=== PATIENT | female | born 1945 | race Caucasian/White ===

== ENCOUNTER 2024-03-18 21:45 | Inpatient (IN) | payer BC, MEDICARE ==
--- NOTE | 2024-03-18 22:19 | ED ---
General Adult HPI - General Chief complaint: Shortness of Breath Stated complaint: JACK Time Seen by Provider: 03/18/24 21:47 Source: patient, EMS, RN notes reviewed, old records reviewed Mode of arrival: EMS Limitations: no limitations - History of Present Illness Initial comments: 78 yo female presenting with cough and dyspnea. [facility]. She is from out of town and states she has been out of her inhaler. She has recent diagnosis of pneumonia and reports that she had initially improved but then redeveloped cough and chills. She is febrile upon arrival. She was given albuterol, Atrovent and prednisone by paramedics. She states cough is productive. No central chest pain. No lower extremity pain or swelling. - Related Data Home Medications Medication Instructions Recorded Confirmed Acetaminophen [Tylenol] 650 mg PO Q6H PRN 05/05/22 05/05/22 Albuterol Inhaler [Ventolin Hfa 2 puff INHALATION RT-Q6H PRN 05/05/22 05/05/22 Inhaler] Cetirizine HCl [Zyrtec] 10 mg PO DAILY 05/05/22 05/05/22 Cider Vinegar [Apple Cider Vinegar] 600 mg PO DAILY 05/05/22 05/05/22 Citalopram Hydrobromide [CeleXA] 40 mg PO DAILY 05/05/22 05/05/22 Flaxseed Oil 3000 Mg 6,000 mg PO DAILY 05/05/22 05/05/22 Fluticasone Propion/Salmeterol 1 puff INHALATION RT-BID 05/05/22 05/05/22 [Fluticasone-Salmeterol 500-50] Hyoscyamine Sulfate [Levsin] 0.25 mg PO TID PRN 05/05/22 05/05/22 Ketoconazole [Ketoconazole 2% 1 applic TOPICAL Q72H PRN 05/05/22 05/05/22 Shampoo] Levalbuterol Nebulized [Xopenex 1.25 mg INHALATION RT-TID PRN 05/05/22 05/05/22 Nebulized] Levothyroxine Sodium [Synthroid] 125 mcg PO DAILY 05/05/22 05/05/22 Magnesium Oxide 200 mg PO DAILY 05/05/22 05/05/22 Multivit-Min/Iron/Folic/Lutein 1 tab PO DAILY 05/05/22 05/05/22 [Centrum Silver Women Tablet] Omeprazole Magnesium [PriLOSEC OTC] 20 mg PO DAILY 05/05/22 05/05/22 Pseudoephedrine [Sudafed] 30 mg PO Q4H PRN 05/05/22 05/05/22 Spironolactone 50 mg PO BID 05/05/22 05/05/22 buPROPion [Wellbutrin] 100 mg PO BID 05/05/22 05/05/22 hydroCHLOROthiazide [Hydrodiuril] 12.5 mg PO DAILY 05/05/22 05/05/22 lisinopriL [Zestril] 20 mg PO BID 05/05/22 05/05/22 polyethylene glycoL 3350 [Miralax] 17 gm PO DAILY PRN 05/05/22 05/05/22 Allergies Allergy/AdvReac Type Severity Reaction Status Date / Time No Known Allergies Allergy Verified 05/05/22 22:46 Review of Systems ROS Statement: Those systems with pertinent positive or pertinent negative responses have been documented in the HPI. ROS Other: All systems not noted in ROS Statement are negative. Past Medical History Past Medical History: Dementia, Hypertension, Pneumonia History of Any Multi-Drug Resistant Organisms: None Reported Past Surgical History: No Surgical Hx Reported Past Psychological History: No Psychological Hx Reported Smoking Status: Never smoker Past Alcohol Use History: None Reported, Rare Past Drug Use History: None Reported General Exam General appearance: alert, in no apparent distress Head exam: Present: atraumatic, normocephalic Eye exam: Present: normal appearance, PERRL ENT exam: Present: normal exam Neck exam: Present: normal inspection. Absent: tenderness Respiratory exam: Present: rhonchi, decreased breath sounds. Absent: respiratory distress Cardiovascular Exam: Present: normal rhythm, tachycardia GI/Abdominal exam: Present: soft. Absent: distended, tenderness, guarding Extremities exam: Present: normal inspection, normal capillary refill. Absent: pedal edema Neurological exam: Present: alert, oriented X3, CN II-XII intact. Absent: motor sensory deficit Psychiatric exam: Present: normal affect, normal mood Skin exam: Present: warm, dry, intact. Absent: cyanosis, diaphoretic Course Vital Signs 07/02/0403/18/24 03/18/24 21:53 22:00 22:05 Temperature 99.6 F 100.3 F H Pulse Rate 110 H 109 H Respiratory 18 18 18 Rate Blood Pressure 169/87 155/96 O2 Sat by Pulse 96 94 L Oximetry 03/18/24 03/19/24 23:39 01:32 Temperature 99.7 F H Pulse Rate 101 H 98 Respiratory 18 18 Rate Blood Pressure 170/82 125/70 O2 Sat by Pulse 95 94 L Oximetry Medical Decision Making - Medical Decision Making Was pt. sent in by a medical professional or institution (, [facility], [employer], urgent care, hospital, or usp...) When possible be specific @ -No Did you speak to anyone other than the patient for history (EMS, parent, family, police, friend...)? What history was obtained from this source @ -No Did you review nursing and triage notes (agree or disagree)? Why? @ -I reviewed and agree with nursing and triage notes Were old charts reviewed (outside hosp., previous admission, EMS record, old EKG, old radiological studies, urgent care reports/EKG's, usp records)? Report findings @ -No old charts were reviewed Differential Diagnosis (chest pain, altered mental status, abdominal pain women, abdominal pain men, vaginal bleeding, weakness, fever, dyspnea, syncope, headache, dizziness, GI bleed, back pain, seizure, CVA, palpatations, mental health, musculoskeletal)? @ -Not applicable EKG interpreted by me (3pts min.). @ -Sinus tachycardia rate of 103, IN interval 150, QRS duration 86, QTc [address] segment elevation X-rays interpreted by me (1pt min.). @ -Chest x-ray shows left lower lobe infiltrate CT interpreted by me (1pt min.). @ -None done U/S interpreted by me (1pt. min.). @ -None done What testing was considered but not performed or refused? (CT, X-rays, U/S, labs)? Why? @ -None What meds were considered but not given or refused? Why? @ -None Did you discuss the management of the patient with other professionals (professionals i.e. [facility] Rubi, [employer]PER[employer]OR, lab, RT, psych nurse, public health social worker, it security engineer, teacher, national insurance officer, case finisher)? Give summary @ -[facility] Was smoking cessation discussed for >3mins.? @ -No Was critical care preformed (if so, how long)? @ -No Were there social determinants of health that impacted care today? How? (Ho melessness, low income, unemployed, alcoholism, drug addiction, transportation, low edu. Level, literacy, decrease access to med. care, shelter, rehab)? @ -No Was there de-escalation of care discussed even if they declined (Discuss DNR or withdrawal of care, Hospice)? DNR status @ -No What co-morbidities impacted this encounter? (DM, HTN, Smoking, COPD, CAD, Cancer, CVA, ARF, Chemo, Hep., AIDS, mental health diagnosis, sleep apnea, morbid obesity)? @ -Asthma, Dementia Was patient admitted / discharged? Hospital course, mention meds given and route, prescriptions, significant lab abnormalities, going to OR and other pertinent info. @ -28-year-old female presenting with fever, productive cough, dyspnea. Patient has a leukocytosis at 14. She is anemic at 10.8. Patient has normal electrolytes, normal lactic acid. Viral panel including influenza and coronavirus is negative. Patient has an infiltrate in the left lower lobe on x- ray. She is treated with IV antibiotics and will be treated additionally for asthma exacerbation with IV steroids and albuterol and Atrovent. Case discussed with Dr. Casillas who will admit Undiagnosed new problem with uncertain prognosis? @ -No Drug Therapy requiring intensive monitoring for toxicity (Heparin, Nitro, Insulin, Cardizem)? @ -No Were any procedures done? @ -No Diagnosis/symptom? @Community-acquired pneumonia, asthma exacerbation Acute, or Chronic, or Acute on Chronic? @ -Acute Uncomplicated (without systemic symptoms) or Complicated (systemic symptoms)? @ -Default Side effects of treatment? @ -No Exacerbation, Progression, or Severe Exacerbation? @ -No Poses a threat to life or bodily function? How? (Chest pain, USA, ND, pneumonia, PE, COPD, DKA, ARF, appy, cholecystitis, CVA, Diverticulitis, Homicidal, Suicidal, threat to staff... and all critical care pts) @ -Yes, respiratory failure, pneumonia, sepsis - Lab Data Result diagrams: 03/18/24 22:25 03/18/24 22:25 Lab Results 03/18/24 03/18/24 03/18/24 Range/Units 22:25 22:25 22:25 WBC 14.2 H (3.8-10.6) k/uL RBC 3.81 (3.80-5.40) m/uL Hgb 10.8 L (11.4-16.0) gm/dL Hct 33.3 L (34.0-46.0) % MCV 87.5 (80.0-100.0) fL MCH 28.4 (25.0-35.0) pg MCHC 32.5 (31.0-37.0) g/dL RDW 15.3 (11.5-15.5) % Plt Count 279 (150-450) k/uL MPV 8.1 Neutrophils % 89 % Lymphocytes % 3 % Monocytes % 4 % Eosinophils % 3 % Basophils % 0 % Neutrophils # 12.7 H (1.3-7.7) k/uL Lymphocytes # 0.5 L (1.0-4.8) k/uL Monocytes # 0.6 (0-1.0) k/uL Eosinophils # 0.4 (0-0.7) k/uL Basophils # 0.0 (0-0.2) k/uL Hypochromasia Slight PT 10.7 (10.0-12.5) sec INR 1.0 (<1.2) APTT 25.7 (22.0-30.0) sec Sodium 134 L (137-145) mmol/L Potassium 4.1 (3.5-5.1) mmol/L Chloride 103 (98-107) mmol/L Carbon Dioxide 26 (22-30) mmol/L Anion Gap 5 mmol/L BUN 12 (7-17) mg/dL Creatinine 0.73 (0.52-1.04) mg/dL Est GFR (CKD-EPI)AfAm >90 (>60 ml/min/1.73 sqM) Est GFR (CKD-EPI)NonAf 79 (>60 ml/min/1.73 sqM) Glucose 132 H (74-99) mg/dL Plasma Lactic Acid Taz (0.7-2.0) mmol/L Calcium 8.6 (8.4-10.2) mg/dL Magnesium 1.8 (1.6-2.3) mg/dL Total Bilirubin 0.6 (0.2-1.3) mg/dL AST 25 (14-36) U/L ALT 15 (4-34) U/L Alkaline Phosphatase 88 (38-126) U/L Troponin I (0.000-0.034) ng/mL NT-Pro-B Natriuret Pep 370 pg/mL Total Protein 6.0 L (6.3-8.2) g/dL Albumin 3.4 L (3.5-5.0) g/dL Influenza Type A (PCR) (Not Detectd) Influenza Type B (PCR) (Not Detectd) RSV (PCR) (Not Detectd) SARS-CoV-2 (PCR) (Not Detectd) 03/18/24 03/18/24 03/18/24 Range/Units 22:25 22:25 22:25 WBC (3.8-10.6) k/uL RBC (3.80-5.40) m/uL Hgb (11.4-16.0) gm/dL Hct (34.0-46.0) % MCV (80.0-100.0) fL MCH (25.0-35.0) pg MCHC (31.0-37.0) g/dL RDW (11.5-15.5) % Plt Count (150-450) k/uL MPV Neutrophils % % Lymphocytes % % Monocytes % % Eosinophils % % Basophils % % Neutrophils # (1.3-7.7) k/uL Lymphocytes # (1.0-4.8) k/uL Monocytes # (0-1.0) k/uL Eosinophils # (0-0.7) k/uL Basophils # (0-0.2) k/uL Hypochromasia PT (10.0-12.5) sec INR (<1.2) APTT (22.0-30.0) sec Sodium (137-145) mmol/L Potassium (3.5-5.1) mmol/L Chloride (98-107) mmol/L Carbon Dioxide (22-30) mmol/L Anion Gap mmol/L BUN (7-17) mg/dL Creatinine (0.52-1.04) mg/dL Est GFR (CKD-EPI)AfAm (>60 ml/min/1.73 sqM) Est GFR (CKD-EPI)NonAf (>60 ml/min/1.73 sqM) Glucose (74-99) mg/dL Plasma Lactic Acid Taz 1.3 (0.7-2.0) mmol/L Calcium (8.4-10.2) mg/dL Magnesium (1.6-2.3) mg/dL Total Bilirubin (0.2-1.3) mg/dL AST (14-36) U/L ALT (4-34) U/L Alkaline Phosphatase (38-126) U/L Troponin I <0.012 (0.000-0.034) ng/mL NT-Pro-B Natriuret Pep pg/mL Total Protein (6.3-8.2) g/dL Albumin (3.5-5.0) g/dL Influenza Type A (PCR) Not Detected (Not Detectd) Influenza Type B (PCR) Not Detected (Not Detectd) RSV (PCR) Not Detected (Not Detectd) SARS-CoV-2 (PCR) Not Detected (Not Detectd) Disposition Clinical Impression: Community acquired pneumonia, Asthma with acute exacerbation Disposition: ADMITTED IP TO THIS HOSP Condition: Stable Is patient prescribed a controlled substance at d/c from ED?: No Time of Disposition: 00:30
[2024-03-18] MEDS: SODIUM CHLORIDE 0.9% 500 ML 500 ML IV ONE (22:48)
[2024-03-18] MEDS: ACETAMINOPHEN TAB 500 MG TAB PO STA (22:49)
[2024-03-18 23:02] LABS: Basophils % (A) 0 %; Eosinophils # (A) 0.4 k/uL (0-0.7); Eosinophils % (A) 3 %; HCT 33.3 % (34.0-46.0); HGB 10.8 gm/dL (11.4-16.0); Hypochromasia Slight; Lymphocytes # (A) 0.5 k/uL (1.0-4.8); Lymphocytes % (A) 3 %; MCH 28.4 pg (25.0-35.0); MCHC 32.5 g/dL (31.0-37.0); MCV 87.5 fL (80.0-100.0); Mean Platelet Volume 8.1; Monocytes # (A) 0.6 k/uL (0-1.0); Monocytes % (A) 4 %; Neutrophils # (A) 12.7 k/uL (1.3-7.7); Neutrophils % (A) 89 %; Platelet Count 279 k/uL (150-450); RBC 3.81 m/uL (3.80-5.40); RDW 15.3 % (11.5-15.5); WBC 14.2 k/uL (3.8-10.6)
[2024-03-18 23:11] LABS: Partial Thromboplastin Time 25.7 sec (22.0-30.0); Prothrombin Time 10.7 sec (10.0-12.5)
[2024-03-18 23:20] LABS: ALT 15 U/L (4-34); AST 25 U/L (14-36); African American GFR (CKD) >90 (>60 ml/min/1.73 sqM); Albumin 3.4 g/dL (3.5-5.0); Alkaline Phosphatase 88 U/L (38-126); Anion Gap 5 mmol/L; Blood Urea Nitrogen 12 mg/dL (7-17); Calcium 8.6 mg/dL (8.4-10.2); Carbon Dioxide 26 mmol/L (22-30); Chloride 103 mmol/L (98-107); Glucose 132 mg/dL (74-99); Magnesium 1.8 mg/dL (1.6-2.3); Non-African American GFR(CKD) 79 (>60 ml/min/1.73 sqM); Potassium 4.1 mmol/L (3.5-5.1); Sodium 134 mmol/L (137-145); Total Bilirubin 0.6 mg/dL (0.2-1.3)
[2024-03-18 23:27] LABS: NT-Pro-B-Type Natriuretic Pept 370 pg/mL
[2024-03-19] MEDS: AZITHROMYCIN 500 MG in SODIUM CHLORIDE 0.9% 250 ML IVPB STA (00:27)
[2024-03-19] MEDS ORDERED: NALOXONE 0.4 MG/ML 1 ML VIAL IVP PRN (00:44)
[2024-03-19] MEDS ORDERED: IPRATROPIUM-ALBUTEROL 3 ML NEB INHALATION PRN (00:44)
--- NOTE | 2024-03-19 01:45 | XR ---
EXAM: XR Chest, 2 Views CLINICAL HISTORY: ITS.REASON XR Reason: difficulty breathing TECHNIQUE: Frontal and lateral views of the chest. COMPARISON: No relevant prior studies available. FINDINGS: Lungs: No consolidation or mass. Mild vascular congestion. Pleural space: No effusion. Heart: cardiomegaly. Bones/joints: No acute findings. IMPRESSION: Mild vascular congestion.
--- NOTE | 2024-03-19 02:59 | P.HPIM ---
History of Present Illness H&P Date: 03/19/24 Patient is a 78-year-old female with a PMH of hypertension who presents to the emergency room with complaints of cough, shortness of breath, and fever. Patient reports that she was initially diagnosed with an atypical pneumonia roughly 5 weeks ago and completed a full course of oral antibiotics. Notes that her symptoms of cough recurred a week after completion of the course after which she again took a second course of oral antibiotics which was also failure. She notes that 3 days ago her symptoms returned again with a nonproductive cough and subjective fever and chills and myalgias. She denied experiencing chest discomfort, nausea, vomiting, abdominal pain, diarrhea. She is visiting from [place]. Chest x-ray in the emergency room revealed findings concerning for left basilar infiltrate as reviewed with the ED provider. EKG revealed sinus tachycardia at 103 bpm with diffuse T wave flattening as reviewed by me. Laboratory evaluation was remarkable for leukocytosis of 14.2, sodium 134, glucose 132, troponin less than 0.012, proBNP 370 with respiratory viral panel negative. The patient had a Tmax of 100.3 F in the emergency room. ED documentation reviewed and case discussed with ED provider. Review of systems: Pertinent positives and negatives as discussed in HPI, a complete review of systems was performed and all other systems are negative. Physical examination: Vital signs reviewed General: non toxic, no distress, appears at stated age, overweight Derm: no unusual rashes/lesions, warm Head: atraumatic, normocephalic, symmetric Eyes: EOMI, no lid lag, anicteric sclera, pupils equal round reactive to light ENT: Nose and ears atraumatic Neck: No cervical lymphadenopathy, trachea midline, supple Mouth: no lip lesion, mucus membranes moist Cardiovascular: S1S2 reg, no murmur, positive dorsalis pedis pulse bilateral, no edema Lungs: CTA bilateral, no rhonchi, no rales, no accessory muscle use Abdominal: soft, nontender to palpation, no guarding Ext: muscle strength 5 out of 5 in all 4 extremities grossly, no gross muscle atrophy, no contractures, Neuro: CN II-XI grossly intact, no gross focal neuro deficits Psych: Alert, oriented, appropriate affect Assessment: Community-acquired pneumonia, with failure of outpatient treatment Normocytic anemia Chronic conditions: Hypertension Imaging: Chest x-ray in the emergency room revealed findings concerning for left basilar infiltrate as reviewed with the ED provider. EKG revealed sinus tachycardia at 103 bpm with diffuse T wave flattening as reviewed by me. Data Review: Laboratory evaluation was remarkable for leukocytosis of 14.2, sodium 134, glucose 132, troponin less than 0.012, proBNP 370 with respiratory viral panel negative. The patient had a Tmax of 100.3 F in the emergency room. Plan: Continue with azithromycin and ceftriaxone Pulmonary consulted Supplemental oxygen Monitor BMP and CBC Follow-up Legionella and sputum cultures Follow blood cultures Resume home medications once reconciled DVT prophylaxis: Lovenox subcu The patient is admitted with an anticipated greater than 2 midnight stay for evaluation of pneumonia CODE STATUS: Full Code Discussed with: Patient Anticipated discharge place: Home Past Medical History Past Medical History: Asthma, Dementia, Hypertension, Pneumonia, Thyroid Disorder History of Any Multi-Drug Resistant Organisms: None Reported Past Surgical History: No Surgical Hx Reported Additional Past Surgical History / Comment(s): partial right nephrectomy Past Anesthesia/Blood Transfusion Reactions: No Reported Reaction Past Psychological History: No Psychological Hx Reported Smoking Status: Never smoker Past Alcohol Use History: None Reported Past Drug Use History: None Reported - Past Family History Mother Family Medical History: Hyperlipidemia Medications and Allergies Home Medications Medication Instructions Recorded Confirmed Type Acetaminophen [Tylenol] 650 mg PO Q6H PRN 05/05/22 05/05/22 History Albuterol Inhaler [Ventolin Hfa 2 puff INHALATION RT-Q6H PRN 05/05/22 05/05/22 History Inhaler] Cetirizine HCl [Zyrtec] 10 mg PO DAILY 05/05/22 05/05/22 History Cider Vinegar [Apple Cider Vinegar] 600 mg PO DAILY 05/05/22 05/05/22 History Citalopram Hydrobromide [CeleXA] 40 mg PO DAILY 05/05/22 05/05/22 History Flaxseed Oil 3000 Mg 6,000 mg PO DAILY 05/05/22 05/05/22 History Fluticasone Propion/Salmeterol 1 puff INHALATION RT-BID 05/05/22 05/05/22 History [Fluticasone-Salmeterol 500-50] Hyoscyamine Sulfate [Levsin] 0.25 mg PO TID PRN 05/05/22 05/05/22 History Ketoconazole [Ketoconazole 2% 1 applic TOPICAL Q72H PRN 05/05/22 05/05/22 History Shampoo] Levalbuterol Nebulized [Xopenex 1.25 mg INHALATION RT-TID PRN 05/05/22 05/05/22 History Nebulized] Levothyroxine Sodium [Synthroid] 125 mcg PO DAILY 05/05/22 05/05/22 History Magnesium Oxide 200 mg PO DAILY 05/05/22 05/05/22 History Multivit-Min/Iron/Folic/Lutein 1 tab PO DAILY 05/05/22 05/05/22 History [Centrum Silver Women Tablet] Omeprazole Magnesium [PriLOSEC OTC] 20 mg PO DAILY 05/05/22 05/05/22 History Pseudoephedrine [Sudafed] 30 mg PO Q4H PRN 05/05/22 05/05/22 History Spironolactone 50 mg PO BID 05/05/22 05/05/22 History buPROPion [Wellbutrin] 100 mg PO BID 05/05/22 05/05/22 History hydroCHLOROthiazide [Hydrodiuril] 12.5 mg PO DAILY 05/05/22 05/05/22 History lisinopriL [Zestril] 20 mg PO BID 05/05/22 05/05/22 History polyethylene glycoL 3350 [Miralax] 17 gm PO DAILY PRN 05/05/22 05/05/22 History Allergies Allergy/AdvReac Type Severity Reaction Status Date / Time No Known Allergies Allergy Verified 05/05/22 22:46 Physical Exam Vitals: Vital Signs Temp Pulse Pulse Resp BP BP Pulse Ox 03/19/24 02:00 98.2 F 92 15 125/64 96 03/19/24 01:32 98 18 125/70 94 L 03/18/24 23:39 99.7 F H 101 H 18 170/82 95 03/18/24 22:05 18 03/18/24 22:00 100.3 F H 109 H 18 155/96 94 L 03/18/24 21:53 99.6 F 110 H 18 169/87 96 Intake and Output 03/18/24 03/18/24 03/19/24 14:59 22:59 06:59 Other: Voiding Method Toilet Weight 65.771 kg 65.771 kg Results CBC & Chem 7: 03/18/24 22:25 03/18/24 22:25 Labs: Abnormal Lab Results - Last 24 Hours (Table) 03/18/24 03/18/24 Range/Units 22:25 22:25 WBC 14.2 H (3.8-10.6) k/uL Hgb 10.8 L (11.4-16.0) gm/dL Hct 33.3 L (34.0-46.0) % Neutrophils # 12.7 H (1.3-7.7) k/uL Lymphocytes # 0.5 L (1.0-4.8) k/uL Sodium 134 L (137-145) mmol/L Glucose 132 H (74-99) mg/dL Total Protein 6.0 L (6.3-8.2) g/dL Albumin 3.4 L (3.5-5.0) g/dL Thrombosis Risk Factor Assmnt - Choose All That Apply Any of the Below Risk Factors Present?: Yes Each Factor Represents 1 point: Obesity (BMI >25) Other Risk Factors: Yes Each Risk Factor Represents 3 Points: Age 75 years or older Thrombosis Risk Factor Assessment Total Risk Factor Score: 4 Thrombosis Risk Factor Assessment Level: Moderate Risk
[2024-03-19 05:36] LABS: HCT 35.3 % (34.0-46.0); HGB 10.5 gm/dL (11.4-16.0); Hypochromasia Marked; MCH 27.2 pg (25.0-35.0); MCHC 29.8 g/dL (31.0-37.0); MCV 91.3 fL (80.0-100.0); Mean Platelet Volume 7.8; Platelet Count 289 k/uL (150-450); RBC 3.87 m/uL (3.80-5.40); RDW 15.3 % (11.5-15.5)
[2024-03-19 05:51] LABS: African American GFR (CKD) >90 (>60 ml/min/1.73 sqM); Anion Gap 7 mmol/L; Blood Urea Nitrogen 12 mg/dL (7-17); Calcium 8.3 mg/dL (8.4-10.2); Carbon Dioxide 24 mmol/L (22-30); Chloride 105 mmol/L (98-107); Glucose 177 mg/dL (74-99); Non-African American GFR(CKD) 82 (>60 ml/min/1.73 sqM); Potassium 4.1 mmol/L (3.5-5.1); Sodium 136 mmol/L (137-145)
[2024-03-19] MEDS ORDERED: methylPREDNISolone SOD SUCCI 125 MG/2 ML VIAL IV SCH ×2 (06:00→14:00)
[2024-03-19] MEDS: IPRATROPIUM-ALBUTEROL 3 ML NEB INHALATION SCH (08:47)
[2024-03-19] MEDS: ENOXAPARIN 40 MG/0.4 ML SYRINGE SQ SCH (09:25)
[2024-03-19] MEDS: AZITHROMYCIN 500 MG TAB PO SCH (09:26)
[2024-03-19] MEDS: predniSONE 20 MG TAB PO SCH (11:01)
--- NOTE | 2024-03-19 13:21 | P.CNPUL ---
History of Present Illness Consult date: 03/19/24 Reason for consult: dyspnea History of present illness: 78-year-old female patient, reported still with ongoing dementia, presented to the hospital because of worsening shortness of breath and cough chest tightness and wheezing. She states that she has had several episodes of pneumonia treated with antibiotics on an outpatient basis. She lives in [place] and she is visiting [place]. She has remained on Advair discus 500/51 puff twice a day and Ventolin rescue inhaler nightly basis. She is currently on room air oxygen. White cell count 11, hemoglobin 10.5, electrolytes are stable. Chest x-ray is clear. Troponins are negative. proBNP is negative. Viral screen has been negative. Denies having any previous hospitalization for asthma exacerbation. She has been maintained on active for years. Exacerbation is not known. No his tory of allergies. No heartburn. No skin rashes. No aspiration. No smoking. Review of Systems All systems: negative (Shortness of breath and cough and wheeze) Past Medical History Past Medical History: Asthma, Dementia, Hypertension, Thyroid Disorder History of Any Multi-Drug Resistant Organisms: None Reported Past Surgical History: No Surgical Hx Reported Additional Past Surgical History / Comment(s): partial right nephrectomy Past Anesthesia/Blood Transfusion Reactions: No Reported Reaction Past Psychological History: No Psychological Hx Reported Smoking Status: Never smoker Past Alcohol Use History: None Reported Past Drug Use History: None Reported - Past Family History Mother Family Medical History: Hyperlipidemia Medications and Allergies Home Medications Medication Instructions Recorded Confirmed Type Albuterol Inhaler [Ventolin Hfa 2 puff INHALATION RT-Q6H PRN 05/05/22 03/19/24 History Inhaler] Fluticasone Propion/Salmeterol 1 puff INHALATION RT-BID 05/05/22 03/19/24 History [Fluticasone-Salmeterol 500-50] Hyoscyamine Sulfate [Levsin] 0.25 mg PO TID PRN 05/05/22 03/19/24 History buPROPion [Wellbutrin] 100 mg PO BID 05/05/22 03/19/24 History Donepezil [Aricept] 10 mg PO HS 03/19/24 03/19/24 History Levothyroxine Sodium [Synthroid] 150 mcg PO DAILY 03/19/24 03/19/24 History Memantine [Namenda] 10 mg PO BID 03/19/24 03/19/24 History Olmesartan [Benicar] 20 mg PO BID 03/19/24 03/19/24 History Omeprazole 20 mg PO DAILY 03/19/24 03/19/24 History Spironolactone [Aldactone] 25 mg PO DAILY 03/19/24 03/19/24 History amLODIPine [Norvasc] 2.5 mg PO DAILY 03/19/24 03/19/24 History traZODone HCL [Desyrel] 50 mg PO HS 03/19/24 03/19/24 History Allergies Allergy/AdvReac Type Severity Reaction Status Date / Time No Known Allergies Allergy Verified 03/19/24 11:19 Physical Exam Vitals: Vital Signs Temp Pulse Pulse Resp BP BP Pulse Ox 03/19/24 12:20 68 03/19/24 12:10 64 03/19/24 08:55 78 03/19/24 08:47 77 97 03/19/24 07:00 97.3 F L 72 147/72 98 03/19/24 02:00 98.2 F 92 15 125/64 96 03/19/24 01:32 98 18 125/70 94 L 03/18/24 23:39 99.7 F H 101 H 18 170/82 95 03/18/24 22:05 18 03/18/24 22:00 100.3 F H 109 H 18 155/96 94 L 03/18/24 21:53 99.6 F 110 H 18 169/87 96 Intake and Output 03/18/24 03/19/24 03/19/24 22:59 06:59 14:59 Intake Total 118 Balance 118 Intake: Oral 118 Other: Voiding Method Toilet # Voids 1 Weight 65.771 kg 65.771 kg The patient appeared well nourished and normally developed. Vital signs as documented. Head exam is unremarkable. No scleral icterus or corneal arcus noted. Neck is without jugular venous distension, thyromegaly, or carotid bruits. Carotid upstrokes are brisk bilaterally. Lungs are slightly diminished and the patient has few scattered expiratory wheezes bilaterally.. Cardiac exam reveals the PMI to be normally sized and situated. Rhythm is regular. First and second heart sounds normal. No murmurs, rubs or gallops. Abdominal exam reveals normal bowel sounds, no masses, no organomegaly and no aortic enlargement. Extremities are nonedematous and both femoral and pedal pulses are normal. Examination of the skin revealed no evidence of significant rashes, suspicious appearing nevi or other concerning lesions. Neurologically, the patient is awake and alert and the patient does not have any focal neurological deficit. Cranial nerves are essentially intact. Results - Laboratory Findings CBC and BMP: 03/19/24 05:11 03/19/24 05:11 PT/INR, D-dimer PT 10.7 sec (10.0-12.5) 03/18/24 22:25 INR 1.0 (<1.2) 03/18/24 22:25 Abnormal lab findings: Abnormal Labs 03/18/24 03/18/24 03/19/24 22:25 22:25 05:11 WBC 14.2 H 11.0 H Hgb 10.8 L 10.5 L Hct 33.3 L MCHC 29.8 L Neutrophils # 12.7 H Lymphocytes # 0.5 L Sodium 134 L Glucose 132 H Calcium Total Protein 6.0 L Albumin 3.4 L 03/19/24 05:11 WBC Hgb Hct MCHC Neutrophils # Lymphocytes # Sodium 136 L Glucose 177 H Calcium 8.3 L Total Protein Albumin - Diagnostic Findings Chest x-ray: image reviewed Assessment and Plan Plan: Exacerbation of chronic bronchial asthma. The patient has moderate persistent bronchial asthma maintained on Advair and outpatient basis. Chest x-ray is free of any acute pulmonary infiltration. No hypoxemia. No signs of any sig nificant respiratory distress. Shortness of breath secondary to above Hypertension Hypothyroidism Dementia the patient is a very poor historian The patient is in [place] resident, visiting [place] Plan I do not appreciate any evidence of pneumonia. Antibiotics can be simplified to oral Zithromax [facility] Keep in the hospital for another 24 hours and monitor her progress Will likely go home on a prednisone burst taper and maintenance of Advair and albuterol on an as-needed basis within the next 24 hours.
[2024-03-19] MEDS: methylPREDNISolone SOD SUCCI 125 MG/2 ML VIAL IV SCH (17:48)
[2024-03-19] MEDS: buPROPion 100 MG TAB PO SCH (19:56)
[2024-03-19] MEDS: DONEPEZIL 10 MG TAB PO SCH (19:56)
[2024-03-19] MEDS: MEMANTINE 10 MG TAB PO SCH (19:56)
[2024-03-19] MEDS: LOSARTAN 25 MG TAB PO SCH (19:56)
[2024-03-19 21:13] VITALS: RESP 16
[2024-03-19] MEDS: SYMBICORT 160-4.5 MCG INHALER INHALATION SCH (21:13)
[2024-03-20 08:32] VITALS: BP 148/74; TEMP 98.3
[2024-03-20 09:25] VITALS: PULSE 80
[2024-03-20] MEDS: PANTOPRAZOLE 40 MG TABLET PO SCH (09:49)
[2024-03-20] MEDS: SPIRONOLACTONE 25 MG TAB PO SCH (09:49)
[2024-03-20] MEDS: LEVOTHYROXINE 75 MCG TAB PO SCH (09:50)
[2024-03-20] MEDS: amLODIPine 2.5 MG TAB PO SCH (09:51)
[2024-03-20 10:16] LABS: Basophils # (A) 0.01 X 10*3/uL (0.00-0.10); Basophils % (A) 0.1 %; Eosinophils # (A) 0 X 10*3/uL (0.04-0.35); Eosinophils % (A) 0 %; HCT 35.8 % (37.2-46.3); HGB 11.1 g/dL (12.0-15.0); Lymphocytes # (A) 0.35 X 10*3/uL (0.90-5.00); Lymphocytes % (A) 2.7 %; MCH 27.4 pg (27.0-32.0); MCV 88.4 FL (80.0-97.0); Mean Platelet Volume 10.9 FL (9.5-12.2); Monocytes # (A) 0.26 X 10*3/uL (0.20-1.00); NRBC Per 100 WBC 0 X 10*3/uL (0.00-0.01); Neutrophils # (A) 12.43 X 10*3/uL (1.80-7.70); Neutrophils % (A) 94.8 %; Platelet Count 364 X 10*3/uL (140-440); RBC 4.05 X 10*6/uL (4.10-5.20); RDW 15.5 % (11.5-14.5)
--- NOTE | 2024-03-20 11:25 | P.DS ---
Providers Date of admission: 03/19/24 00:44 Expected date of discharge: 03/20/24 Attending physician: Luis Felipe Casillas MD Consults: 03/19/24 02:58 Consult Physician Urgent Consulting Provider: Nery Mclain Consult Reason/Comments: CAP Do you want consulting provider notified?: Yes Primary care physician: Stated None Hospital Course: Discharge Diagnosis: Asthma exacerbation Dyspnea Dementia Hypothyroidism Hypertension GERD Hospital Course: 78-year-old female with a PMH of hypertension who presents to the emergency room with complaints of cough, shortness of breath, and fever. EKG revealed sinus tachycardia at 103 bpm with diffuse T wave flattening. Laboratory evaluation was remarkable for leukocytosis of 14.2, sodium 134, glucose 132, troponin less than 0.012, proBNP 370 with respiratory viral panel negative. The patient had a Tmax of 100.3 F in the emergency room. Procalcitonin came back to be 0.07. His x-ray did not show any opacities. Patient was started on IV antibiotics. Pulmonology consulted. Started on steroids for likely exacerbation of chronic bronchial asthma. Patient now being discharged on steroid taper. Follow-up outpatient with PCP. Patient seen and examined at bedside. Vital signs reviewed and stable. General: Nontoxic, no distress, appears at stated age Derm: Warm, dry Head: Atraumatic, normocephalic, symmetric Eyes: EOMI, no lid lag, anicteric sclera Mouth: No lip lesion, mucus membranes moist Cardiovascular: S1S2 reg, no murmur Lungs: CTA bilateral, no rhonchi, no rales, no accessory muscle use Abdominal: Soft, nontender to palpation, no guarding, no appreciable organomegaly Ext: No gross muscle atrophy, no edema, no contractures Neuro: CN II-XI grossly intact, no focal neuro deficits Psych: Alert, oriented, appropriate affect A total of 33 minutes of time were spent preparing this complex discharge summary. Patient was discharged on 03/20/2024 at 1120. Patient Condition at Discharge: Stable Plan - Discharge Summary New Discharge Prescriptions: New Azithromycin [Zithromax] 500 mg PO DAILY #3 tab methylPREDNISolone Dose Pack [Medrol Dose Pack] 4 mg PO DIRECTED #21 tab Continue Hyoscyamine Sulfate [Levsin] 0.25 mg PO TID PRN PRN Reason: CRAMPING Spironolactone [Aldactone] 25 mg PO DAILY Memantine [Namenda] 10 mg PO BID Levothyroxine Sodium [Synthroid] 150 mcg PO DAILY buPROPion [Wellbutrin] 100 mg PO BID amLODIPine [Norvasc] 2.5 mg PO DAILY traZODone HCL [Desyrel] 50 mg PO HS Omeprazole 20 mg PO DAILY Olmesartan [Benicar] 20 mg PO BID Donepezil [Aricept] 10 mg PO HS Fluticasone Propion/Salmeterol [Fluticasone-Salmeterol 500-50] 1 puff INHALATION RT-BID #1 each Albuterol Inhaler [Ventolin Hfa Inhaler] 2 puff INHALATION RT-Q6H PRN #1 each PRN Reason: Shortness Of Breath Discharge Medication List Hyoscyamine Sulfate [Levsin] 0.25 mg PO TID PRN 05/05/22 [History] buPROPion [Wellbutrin] 100 mg PO BID 05/05/22 [History] Donepezil [Aricept] 10 mg PO HS 03/19/24 [History] Levothyroxine Sodium [Synthroid] 150 mcg PO DAILY 03/19/24 [History] Memantine [Namenda] 10 mg PO BID 03/19/24 [History] Olmesartan [Benicar] 20 mg PO BID 03/19/24 [History] Omeprazole 20 mg PO DAILY 03/19/24 [History] Spironolactone [Aldactone] 25 mg PO DAILY 03/19/24 [History] amLODIPine [Norvasc] 2.5 mg PO DAILY 03/19/24 [History] traZODone HCL [Desyrel] 50 mg PO HS 03/19/24 [History] Albuterol Inhaler [Ventolin Hfa Inhaler] 2 puff INHALATION RT-Q6H PRN #1 each 03/20/24 [Rx] Azithromycin [Zithromax] 500 mg PO DAILY #3 tab 03/20/24 [Rx] Fluticasone Propion/Salmeterol [Fluticasone-Salmeterol 500-50] 1 puff INHALATION RT-BID #1 each 03/20/24 [Rx] methylPREDNISolone Dose Pack [Medrol Dose Pack] 4 mg PO DIRECTED #21 tab 03/20/24 [Rx] Follow up Appointment(s)/Referral(s): None,Stated [Primary Care Provider] - 1-2 days Patient Instructions/Handouts: Asthma (DC) Activity/Diet/Wound Care/Special Instructions: Please see your PCP. Discharge Disposition: HOME SELF-CARE
[2024-03-20 12:55] LABS: ALT 17 U/L (8-44); AST 18 U/L (13-35); Albumin 3.9 g/dL (3.8-4.9); Albumin/Globulin Ratio 1.44 Ratio (1.60-3.17); Alkaline Phosphatase 86 U/L (41-126); BUN/Creat Ratio 15.62 Ratio (12.00-20.00); Blood Urea Nitrogen 12.5 mg/dL (9.0-27.0); Calcium 9.4 mg/dL (8.7-10.3); Carbon Dioxide 22.8 mmol/L (21.6-31.8); Chloride 104 mmol/L (96-109); Globulin 2.7 g/dL (1.6-3.3); Glucose 177 mg/dL (70-110); Potassium 4.7 mmol/L (3.5-5.5); Sodium 140 mmol/L (135-145); Total Bilirubin <0.2 mg/dL (0.3-1.2); Total Protein 6.6 g/dL (6.2-8.2)
--- NOTE | 2024-03-20 13:31 | P.PN ---
Subjective Progress Note Date: 03/20/24 03/20/2024, the patient is being seen for a follow-up. Much improved, less bronchospastic and wheezy compared to yesterday. No new complaints. Blood work is also stable. The white cell count of 15 with a hemoglobin 11 and a platelet count of 364. Normal electrolytes. Objective - Vital Signs Vital signs: Vital Signs Temp 98.3 F 03/20/24 08:00 Pulse 80 03/20/24 09:24 Resp 16 03/20/24 02:30 BP 148/74 03/20/24 08:00 Pulse Ox 96 03/20/24 09:24 FiO2 21 03/20/24 09:24 Intake & Output 03/19/24 03/20/24 03/20/24 18:59 06:59 18:59 Intake Total 354 118 Balance 354 118 Intake: Oral 354 118 Other: Voiding Method Toilet # Voids 1 2 - Exam The patient appeared well nourished and normally developed. Vital signs as documented. Head exam is unremarkable. No scleral icterus or corneal arcus noted. Neck is without jugular venous distension, thyromegaly, or carotid bruits. Carotid upstrokes are brisk bilaterally. Lungs are clear to auscultation and percussion. Cardiac exam reveals the PMI to be normally sized and situated. Rhythm is regular. First and second heart sounds normal. No murmurs, rubs or gallops. Abdominal exam reveals normal bowel sounds, no masses, no organomegaly and no aortic enlargement. Extremities are nonedematous and both femoral and pedal pulses are normal. - Labs CBC & Chem 7: 03/20/24 05:52 03/20/24 05:52 Labs: Abnormal Lab Results - Last 24 Hours (Table) 03/20/24 03/20/24 Range/Units 05:52 05:52 WBC 13.10 H (4.50-10.00) X 10*3/uL RBC 4.05 L (4.10-5.20) X 10*6/uL Hgb 11.1 L (12.0-15.0) g/dL Hct 35.8 L (37.2-46.3) % MCHC 31.0 L (32.0-37.0) g/dL RDW 15.5 H (11.5-14.5) % Immature Gran # 0.05 H (0.00-0.04) X 10*3/uL Neutrophils # 12.43 H (1.80-7.70) X 10*3/uL Lymphocytes # 0.35 L (0.90-5.00) X 10*3/uL Eosinophils # 0 L (0.04-0.35) X 10*3/uL Anion Gap 13.20 H (4.00-12.00) mmol/L Glucose 177 H (70-110) mg/dL Total Bilirubin <0.2 L (0.3-1.2) mg/dL Albumin/Globulin Ratio 1.44 L (1.60-3.17) Ratio Microbiology - Last 24 Hours (Table) 03/18/24 22:14 Blood Culture - Preliminary Blood 03/18/24 21:59 Blood Culture - Preliminary Blood Assessment and Plan Plan: Exacerbation of chronic bronchial asthma. The patient has moderate persistent bronchial asthma maintained on Advair and outpatient basis. Chest x-ray is free of any acute pulmonary infiltration. No hypoxemia. No signs of any significant respiratory distress., Clinically improved Shortness of breath secondary to above Hypertension Hypothyroidism Dementia the patient is a very poor historian The patient is in [facility], visiting [place] Plan Improved clinically Start the patient on Symbicort and the patient be able to discharge home on a prednisone burst taper and additional risk inhaler to be used on an as-needed basis.
== END 2024-03-20 13:42 | disposition home or self-care (01) | DRG 203 ==
LOC: EC 21:45 → 5NMEDONC 03-19 00:44 → 6NMEDSUR 03-19 00:57
PROVIDERS: ADMIT Internal Medicine; ATTEND Internal Medicine
DX: J45.901 Unspecified asthma with (acute) exacerbation (principal); Z20.822 Contact with and (suspected) exposure to COVID-19; E03.9 Hypothyroidism, unspecified; Z79.890 Hormone replacement therapy; D64.9 Anemia, unspecified; F03.90 Unspecified dementia, unspecified severity, without behavioral disturbance, psychotic disturbance, mood disturbance, and anxiety; R00.0 Tachycardia, unspecified; I10 Essential (primary) hypertension; K21.9 Gastro-esophageal reflux disease without esophagitis; Z79.899 Other long term (current) drug therapy; Z90.5 Acquired absence of kidney
CPT/HCPCS: 36415; 71046; 80048; 80053; 83605; 83735; 83880; 84145; 84484; 85025; 85027; 85610; 85730; 87040; 87449; 87636; 93005; 94640; 94760; 96361; 96365; 96367; 99285